=== PATIENT | male | born 1950 | race Caucasian/White ===

== ENCOUNTER 2016-10-21 01:28 | Day surgery (SDC) | payer MEDICARE, OTHER ==
[2016-10-21] VITALS (10 sets, daily range): BP systolic 101–140; BP diastolic 49–89; PULSE 86–111; RESP 16–18; O2SAT 91–99
[~2016-10-21] VITALS: Ht 182.9 cm; Wt 96.0 kg
[~2016-10-21 01:28] MED LIST: ACET1TAB12 PO; AMMO385C5 TP; ASCO-294 PO; ASPI-973 PO; BISA10SU61 RC; CALC667T5 PO; CARV25TA2 PO; CETI5TAB28 PO; CHOL100043 PO; CYAN10008 PO; DOCU250C2 PO; FLUT9.9S NS; HYDR-3605 PO; INSU100I; LACT10SO27 PO; MAGN400T39 PO; METH5TAB3 PO; NORT50CA PO; OMEP20TA86 PO; POLY17PO2 PO; PRAV40TA PO; PRAZ2CAP2 PO; SENN-133 PO; SEVE800T7 PO; SODI15OR8 PO; TEST200V20 IM; TRAZ-118 PO; VANC1VIA13 IV; VARD20TA30 PO; WHEA98PO PO; ZOLP10TA5 PO; ZYL100 PO; [UNRECOGNIZED DRUG - CODE] PO
[2016-10-21 08:58] LABS: BASOPHILS % (AUTO) 0.4 % (0-3); EOSINOPHILS % (AUTO) 5.9 % (0-5); MONOCYTES % (AUTO) 10.7 % (4-12); Mean Corpuscular Hemoglobin 30.1 pg (27.0-35.0); Mean Corpuscular Volume 91.3 fL (81-100); NEUTROPHILS % (AUTO) 63.9 % (40-74); Platelet Count 72 bil/L (150-400)
[2016-10-21 09:14] LABS: INR 1.04 ratio
[2016-10-21] MEDS ORDERED: 0.9% Sodium Chloride 500 ML ONE (10:28)
[2016-10-21] MEDS ORDERED: CeFAZolin 2 Gm/50 mL D5W Duplex Bag IV ONE (10:28)
[2016-10-21] MEDS ORDERED: Dextrose 5% 0.45% NaCl 1,000 ML IV ONE (10:37)
[2016-10-21] MEDS ORDERED: Heparin 5,000 Units/500 mL NS Premix IV ONE (12:29)
[2016-10-21] MEDS ORDERED: fentaNYL-PF 50 mCg/mL 2 mL Inj ONE (12:29)
[2016-10-21] MEDS ORDERED: Heparin 1,000 Unit/mL 10 mL Inj ONE (12:29)
[2016-10-21] MEDS ORDERED: Ondansetron 2 mg/mL 2 mL Inj ONE (13:58)
--- NOTE | 2016-10-21 16:16 | NUR ---
Patient discharged ambulatory with oil truck driver. Patient has eaten and drank apple juice. Patient received total of apple juice 240cc, some water and a sandwich.D5 1/2ns continued until patient ate.
--- NOTE | 2016-10-21 16:47 | DRSVH ---
PROCEDURE: ARTERIO VENOUS FISTULOGRAM (PNL) INDICATIONS: STENOSIS TECHNIQUE: 1. Conscious sedation for 30 minutes. 2. Antegrade access of the left upper extremity venous outflow. 3. Fistulogram performed in stations the level of the SVC. 4. Balloon angioplasty of 3 focal high-grade stenoses within the venous outflow. 5. Completion fistulogram. 6. Sheath removal hemostasis. The indications, alternatives, benefits, risks, and complications of the procedure were explained to the patient.. Informed written consent was obtained and placed in the chart. The patient was tereza t to the angiography suite, and conscious sedation was administered intravenously by assisted staff, while continuous cardiorespiratory monitoring was performed. Maximum sterile barrier technique was employed per standard protocol, including hand hygiene, cap, ma sk, sterile gown and gloves, and 2% chlorhexidine. One percent lidocaine was used to anesthetize the skin over the area of interest. Using Seldinger technique and a micropuncture kit, the venous outflow of a left upper extremity fistula was accessed in antegrade fashion. Fistulogram was performed throu gh the micropuncture sheath. An 035 wire was advanced with the tip in the brachiocephalic vein. The m icropuncture sheath was exchanged for a short 6 Beninese sheath. Balloon angioplasty was performed for a focal high-grade stenosis within the distal portion of the central cephalic stent with a 7 mm x 40 mm high-pressure balloon. Angioplasty was also performed with this balloon at a focal high-grade sten osis within the peripheral portion of the cephalic stent. Next, angioplasty was performed for a focal high-grade stenosis within the midportion of the venous outflow with the 7 mm x 40 mm high-pressure balloon. Next, all 3 lesions were angioplastied with an 8 mm x 40 mm high-pressure balloon. Completio n fistulogram was performed. The balloon was removed, the sheath was removed, and hemostasis was achi eved. FLUOROSCOPY TIME: 3.6 minutes. COMPARISON: [facility], , ARTERIO VENOUS FISTULOGRAM (PNL), 04/08/2016, 12:07. FINDINGS: Initial fistulogram demonstrates a focal high-grade stenosis at the central portion of the cephalic stent, a focal high-grade stenosis within the peripheral portion of the cephalic stent, and a moderate to high-grade stenosis within the midportion of the venous outflow. The arteriovenous dino stomosis is widely patent. Completion fistulogram after balloon angioplasty demonstrates resolution o f the 3 focal stenoses. IMPRESSION: 1. Status post balloon angioplasty of a focal high-grade stenosis within the central portion of the c ephalic stent, a focal high-grade stenosis within the peripheral portion of the cephalic stent, and a moderate to high-grade stenosis within the midportion of the venous outflow. No residual stenosis re herber. Dictated by: Sabine Joshua M.D. on 10/21/2016 at 16:45 Approved by: Sabine Joshua M.D. on 10/21/2016 at 16:45
== END 2016-10-21 23:59 | disposition home or self-care (01) ==
LOC: SOUO 01:28
PROVIDERS: ATTEND Radiology Vascular & Interventional Radiology
DX: T82.858A Stenosis of other vascular prosthetic devices, implants and grafts, initial encounter (principal); Y83.2 Surgical operation with anastomosis, bypass or graft as the cause of abnormal reaction of the patient, or of later complication, without mention of misadventure at the time of the procedure; I12.0 Hypertensive chronic kidney disease with stage 5 chronic kidney disease or end stage renal disease; N18.6 End stage renal disease; Z99.2 Dependence on renal dialysis; Z87.891 Personal history of nicotine dependence; I25.10 Atherosclerotic heart disease of native coronary artery without angina pectoris; T82.856A Stenosis of peripheral vascular stent, initial encounter; Y84.8 Other medical procedures as the cause of abnormal reaction of the patient, or of later complication, without mention of misadventure at the time of the procedure
CPT/HCPCS: 36902; 80048; 85025; 85610; 99152; 99153; C1725; C1769; C1894; J1644; J2250; J2405; J3010; J7040; Q9967

== ENCOUNTER 2017-01-25 01:50 | Day surgery (SDC) | payer MEDICARE, OTHER ==
[2017-01-25] VITALS (9 sets, daily range): BP systolic 129–143; BP diastolic 48–82; PULSE 90–110; RESP 16–24; O2SAT 94–96
[~2017-01-25] VITALS: Ht 185.4 cm; Wt 95.0 kg
[~2017-01-25 01:50] MED LIST changes: -VANC1VIA13 IV; -[UNRECOGNIZED DRUG - CODE] PO
[2017-01-25 07:47] LABS: BASOPHILS % (AUTO) 0.3 % (0-3); EOSINOPHILS % (AUTO) 3.8 % (0-5); Mean Corpuscular Hemoglobin 30.8 pg (27.0-35.0); Mean Corpuscular Volume 94.6 fL (81-100); NEUTROPHILS % (AUTO) 66.2 % (40-74); Platelet Count 67 bil/L (150-400)
[2017-01-25] MEDS ORDERED: ZYL100 PO (07:55)
[2017-01-25] MEDS ORDERED: CARV25TA2 PO (07:55)
[2017-01-25 08:07] LABS: INR 1.16 ratio
[2017-01-25] MEDS ORDERED: Heparin 1,000 Unit/mL 10 mL Inj ONE (08:11)
[2017-01-25] MEDS ORDERED: Heparin 5,000 Units/500 mL NS Premix IV ONE (08:11)
[2017-01-25] MEDS ORDERED: Ondansetron 2 mg/mL 2 mL Inj ONE (08:39)
[2017-01-25] MEDS ORDERED: fentaNYL-PF 50 mCg/mL 2 mL Inj ONE (08:55)
--- NOTE | 2017-01-25 10:52 | DRSVH ---
PROCEDURE: 1. Limited ultrasound of the left upper extremity arteriovenous fistula. 2. Angioplasty of the venous limb at the level of the distal humerus. 3. Angioplasty of the venous limb at the level of the proximal humerus. 4. Angioplasty of the central aspect of the cephalic vein stent. 5. Conscious sedation x57 minutes. INDICATIONS: Malfunctioning arteriovenous fistula. COMPARISON: None. TECHNIQUE: Informed, written consent from the patient was obtained prior to the procedure. Patient wa s brought to the angiography suite, and conscious sedation was administered intravenously by senior living staff, while continuous cardiorespiratory monitoring was performed. Maximal sterile barrier t echnique, hand hygiene, skin preparation, and sterile ultrasound technique (if ultrasound was utilize d) was followed. A mask, sterile gown, sterile gloves, a large sterile sheet, hand hygiene, and 2% ch lorhexidine or iodine was utilized for skin antisepsis. The left upper extremity was prepped and drap ed sterilely, and the skin and subcutaneous tissues overlying the peripheral aspect of the venous emanuel e were infused with lidocaine. Limited ultrasound of the venous limb was performed. The peripheral as pect of the venous line was accessed antegrade with a micropuncture set. Contrast was injected for ar teriovenous fistulogram. Intravenous heparin was administered. A 6 [place] sheath was advanced. An 8mm diameter high pressure angioplasty balloon was expanded within the central cephalic vein stent, the venous limb at the level of the proximal humerus, in the venous limb at the level of the distal humer us, followed by repeat arteriovenous fistulogram. Sheath was removed and the venotomy was closed with pursestring closure technique. FLUOROSCOPY TIME: 4 minutes FINDINGS: Recurrent high-grade stenoses within the venous limb at the level of the distal humerus, p roximal humerus, and within the central aspect of the cephalic vein stent are present, resolved follo wing 8 mm high-pressure angioplasty. IMPRESSION: 1. Multifocal recurrent high-grade stenoses within the venous limb, resolved following 8 mm high-pres sure angioplasty. Dictated by: Juarez Purvis M.D. on 01/25/2017 at 10:47 Approved by: Juarez Purvis M.D. on 01/25/2017 at 10:50
--- NOTE | 2017-01-25 12:50 | NUR ---
Discharge Pt discharged to home with , VSS and WNL on RA throughout recovery, purse string removed from fistula site, no signs of bleeding post removal. Pt stated verbal understanding of discharge instructions regarding signs of worsening condition, follow up appointments and use of home medications. Pt left with personal belongings, discharge paperwork, IV dc'd intact at approximately 1155
== END 2017-01-25 23:59 | disposition home or self-care (01) ==
LOC: SOUO 01:50
PROVIDERS: ATTEND Radiology Diagnostic Radiology
DX: T82.858A Stenosis of other vascular prosthetic devices, implants and grafts, initial encounter (principal); T82.856A Stenosis of peripheral vascular stent, initial encounter; Y84.8 Other medical procedures as the cause of abnormal reaction of the patient, or of later complication, without mention of misadventure at the time of the procedure; Y83.2 Surgical operation with anastomosis, bypass or graft as the cause of abnormal reaction of the patient, or of later complication, without mention of misadventure at the time of the procedure; E11.22 Type 2 diabetes mellitus with diabetic chronic kidney disease; E11.21 Type 2 diabetes mellitus with diabetic nephropathy; D63.1 Anemia in chronic kidney disease; N18.6 End stage renal disease; Z99.2 Dependence on renal dialysis; Z79.4 Long term (current) use of insulin
CPT/HCPCS: 36415; 36902; 80048; 85025; 85610; 99152; 99153; C1725; C1769; J1644; J2250; J2405; J3010; Q9967

== ENCOUNTER 2017-03-31 14:07 | Emergency (ER) | payer MEDICARE, OTHER ==
[~2017-03-31] VITALS: Ht 185.4 cm; Wt 97.7 kg
[~2017-03-31 14:07] MED LIST changes: -LACT10SO27 PO; -POLY17PO2 PO
[2017-03-31 14:11] VITALS: BP 135/55; PULSE 78; RESP 18; O2SAT 98
--- NOTE | 2017-03-31 14:34 | ED.REPORT ---
HPI-Extremity Problem Upper Date of Service Mar 31, 2017 ED Provider: History of Present Illness: 66yo male with long hx. of DM and ESRD, he is on dialysis and reports several months of sores on dorsal L index, middle, and ring fingers that wound care clinic advised having evaluated per his report. The fingers are sore. He reports he has an appt. with Dr. Duane Salcedo on 04/05/17. Nursing Notes Stated Complaint: LEFT HAND PAIN Chief Complaint: Extremity Trauma Nursing Notes Reviewed: Yes Allergies: Coded Allergies: quetiapine (Verified Allergy, Intermediate, 07/21/16) "i almost black out" lisinopril (Verified Allergy, Unknown, 07/21/16) "i almost black out" Scheduled Allopurinol (Allopurinol) 100 Mg Tablet 100 MG PO DAILY Aspirin (Aspirin) 81 Mg Tablet 162 MG PO DAILY Bisacodyl (Dulcolax Rectal) 10 Mg Supp.rect 10 MG RC DAILY Calcium Acetate (Calcium Acetate) 667 Mg Tablet 3 TABLET PO DAILY Carvedilol (Carvedilol) 25 Mg Tablet 37.5 MG PO BID Cetirizine (Cetirizine) 5 Mg Tablet 5 MG PO HS Cholecalciferol (Vitamin D3) (Vitamin D) 1,000 Unit Tablet 1,000 UNIT PO BID Cyanocobalamin (Vitamin B-12) (Vitamin B-12) 1,000 Mcg Tablet 1,000 MCG PO DAILY Docusate Sodium (Docusate Sodium) 250 Mg Capsule 250 MG PO DAILY Insulin Aspart (NovoLOG U-100 Pen) 100 Unit/Ml Insuln.pen 0-10 ACHS Methadone (Methadone) 5 Mg Tablet 5 MG PO BID Nortriptyline (Nortriptyline) 50 Mg Capsule 200 MG PO HS Omeprazole (Omeprazole) 20 Mg Tablet.dr 20 MG PO BID Pravastatin (Pravastatin) 40 Mg Tablet 40 MG PO HS Prazosin (Prazosin) 2 Mg Capsule 2 MG PO HS Sevelamer Carbonate (Renvela) 800 Mg Tablet 3,200 TABLET PO TIDWM Trazodone (Trazodone) 100 Mg Tablet 100 MG PO HS Scheduled PRN Acetaminophen/Codeine 300-30mg (Tylenol/Codeine #3) 1 Each Tablet 1 TABLET PO q4hr PRN PRN Pain HydrOXYzine HCl (HydrOXYzine HCl) 10 Mg Tablet 10 MG PO TID PRN PRN For Itching Zolpidem (Zolpidem) 10 Mg Tablet 10 MG PO HS PRN PRN For Insomnia oxyCODONE (oxyCODONE) 5 Mg Tablet 5 MG PO Q4H PRN PRN For Pain Miscellaneous Medications Ammonium Lactate (Ammonium Lactate) 140 Gm Cream..g. TP Ascorbate Calcium (Vitamin C) 500 Mg Tablet 500 MG PO Fluticasone Propionate (Flonase Allergy Relief) 50 Mcg/Actuation [place].susp 9.9 ML NS Magnesium Oxide (Magnesium) 400 Mg Tablet 400 MG PO Sennosides (Senna) 8.6 Mg Tablet 8.6 MG PO Sodium Polystyrene Sulfonate (Sodium Polystyrene Sulfonate) 15 Gm/60 Ml Oral.susp 15 GM PO Testosterone Cypionate (Testosterone Cypionate) 200 Mg/1 Ml Vial 200 MG IM Vardenafil (Levitra) 20 Mg Tablet 10 MG PO Wheat Dextrin (Benefiber) 1 Each Powd.pack 1 EACH PO General Time Seen by MD: 14:34 Chief Complaint Finger injury left 2, Finger injury left 3, Finger injury left 4 dry gangrene L index finger Hx Obtained From: Patient Arrived By: Walk-in Onset Occurred: More than a week ago... (3 months) Symptom Duration: Waxes and wanes Location: : Finger left 2: Finger left 3: Finger left 4 Severity: Current: Moderate Severity: Maximum: Severe Pertinent Negative: Pt denies other symptoms Past Medical History Past Medical History - End stage renal disease on chronic hemodialysis. - NSTEMI - congestive heart failure, acute, systolic dysfunction. 35-40% EF - valvular heart disease - aortic valve calcifications - Hx of acute hypoxic respiratory failure due to acute pulmonary edema requiring high-flow oxygen - diabetic neuropathy - gout - obstructive sleep apnea Reports: Coronary artery disease, Diabetes mellitus, Hyperlipidemia, Hypertension, Stroke Reports: Atrial fibrillation Past Surgical History 3-way cardiac bypass December 2014 Reports: CABG Reports: Carpal tunnel Family History Reports: Diabetes mellitus Smoking History Former Smoker Social History Other Social History: Good social support, Ambulatory Status Wheelchair Review of Systems Constitutional: Denies: Chills, Fever Musculoskeletal: Reports: Back pain, Extremity pain, Joint pain, Denies: Extremity swelling Cardiovascular: Denies: Chest pain GI: Denies: Abdominal pain Physical Exam Initial Vital Signs Vital Signs (First) Date Time Temp Pulse Resp B/P Pulse Ox O2 Delivery O2 Flow Rate FiO2 03/31/17 14:11 36.8 78 18 135/55 98 Room Air Initial VS: Vital signs normal General/Constitutional: Awake, Alert, No acute distress, Not toxic appearing Respiratory / Chest: Breath sounds NL, Breath sounds = bilat, No respiratory distress Cardiovascular: Heart rate NL, Regular rhythm, Heart sounds NL Finger Exam : Finger Exam: Positive: Finger name... (L index), ROM reduced, Tenderness present... (Moderate) dry gangrene at distal phalanx. Dorsal PIP ulcer/escar at 3rd digit. Re-Eval/Medical Decision Med Decision/Clinical Course Pt. reviewed with Dr. Mclean who advised pain relief and follow up with Dr. Salcedo as scheduled. Discussed s/s for which to return to ED. Pt. acknowledged understanding of treatment plan. Counseled Regarding: Diagnosis, Need for follow-up, When/why to return to ED Discharge & Departure Impression: Primary Impression: Dry gangrene Additional Impression: Ischemic finger ulcer Non-pressure ulcer stage: unspecified non-pressure ulcer stage Qualified Code : L98.499 - Non-pressure chronic ulcer of skin of other sites with unspecified severity Disposition: Home Patient Instructions: Gangrene (DC) Additional Instructions: Take pain meds as needed for finger pain. Use soap and water to wounds daily. Follow up with Dr. Salcedo as scheduled on 04/05. Return to Er if anything worsens. Referrals: Nathanael Salcedo MD 5 to 6 Days as scheduled 04/05 EDSupervising Provider for APC: Deny Mclean MD Attending Statement I saw and evaluated this patient with Mr. Matt PA-C. I am in agreement with his assessment of dried gangrene in the left fingertips. The patient has follow -up already arranged with Dr. Salcedo from surgery in 48 hours. The visit today is primarily a pain management issue and Mr. Gutierrez will arrange for more effective pain management. Catrachito Talamantes MD Mar 31, 2017 14:34 Andrew Gutierrez Mar 31, 2017 14:38 Deny Mclean MD Mar 31, 2017 16:49
--- NOTE | 2017-03-31 15:10 | DRSVH ---
PROCEDURE: X-RAY LEFT HAND, MINIMUM THREE VIEWS ([id number]) INDICATIONS: RULE OUT osteo TECHNIQUE: 3 views of the hand(s) acquired. COMPARISON: None. FINDINGS: Bones: No fractures or dislocations. Carpal bones are normally aligned. No suspicious bony lesions . Osteopenia. Mild degenerative changes in multiple interphalangeal joints. Soft tissues: No suspicious soft tissue calcifications. Extensive vascular calcifications. IMPRESSION: 1. No acute fractures. 2. Extensive vascular calcifications. Correlate for history of diabetes. Dictated by: Curt Gilman M.D. on 03/31/2017 at 15:07 Approved by: Curt Gilman M.D. on 03/31/2017 at 15:08
[2017-03-31] MEDS ORDERED: OXYC5TAB72 PO (16:44)
[2017-03-31 16:50] VITALS: BP 136/54; PULSE 69; RESP 16; O2SAT 98
== END 2017-03-31 16:51 | disposition home or self-care (01) ==
LOC: SED 14:07
DX: I96 Gangrene, not elsewhere classified (principal); L98.499 Non-pressure chronic ulcer of skin of other sites with unspecified severity; E11.22 Type 2 diabetes mellitus with diabetic chronic kidney disease; N18.6 End stage renal disease; I50.9 Heart failure, unspecified; E11.21 Type 2 diabetes mellitus with diabetic nephropathy; I25.10 Atherosclerotic heart disease of native coronary artery without angina pectoris; E78.5 Hyperlipidemia, unspecified; I12.0 Hypertensive chronic kidney disease with stage 5 chronic kidney disease or end stage renal disease; Z99.2 Dependence on renal dialysis; Z87.891 Personal history of nicotine dependence; Z95.1 Presence of aortocoronary bypass graft; Z86.73 Personal history of transient ischemic attack (TIA), and cerebral infarction without residual deficits; Z88.8 Allergy status to other drugs, medicaments and biological substances; Z79.82 Long term (current) use of aspirin; Z79.4 Long term (current) use of insulin

== ENCOUNTER 2017-04-13 19:46 | Emergency (ER) | payer MEDICARE, OTHER ==
[~2017-04-13] VITALS: Ht 185.4 cm; Wt 100.0 kg
[~2017-04-13 19:46] MED LIST changes: +OXYC5TAB72 PO
[2017-04-13 20:15] VITALS: BP 149/60; PULSE 88; RESP 18; O2SAT 97
--- NOTE | 2017-04-13 20:33 | ED.REPORT ---
HPI-General Illness Date of Service Apr 13, 2017 ED Provider: Marshall Jc MD Pt is a 66 y/o male w/ a hx of ESRD on HD, CHF, CAD, HTN, CVA, DM, HLD, a-fib, presenting to the ED due to marital difficulties. The patient has been to his for 46 years and apparently wanted to get away from his because they have been having heated arguments so he decided to come to the ED. The patient called his emergency room specialist Dr. Nixon who recommended he come to the ED today. He has also been experiencing vague transient confusion which has been occurring for many years such as not being able to fix a TV remote control. There are no acute medical complaints. In further conversations with the patient it sounds like his primary frustration today was getting his multiple remote controls confused at which point he became quite agitated and had an argument with his . Nursing Notes Stated Complaint: GENERAL Chief Complaint: General Complaint Nursing Notes Reviewed: Yes Allergies: Coded Allergies: quetiapine (Verified Allergy, Intermediate, 07/21/16) "i almost black out" lisinopril (Verified Allergy, Unknown, 07/21/16) "i almost black out" Scheduled Allopurinol (Allopurinol) 100 Mg Tablet 100 MG PO DAILY Aspirin (Aspirin) 81 Mg Tablet 162 MG PO DAILY Bisacodyl (Dulcolax Rectal) 10 Mg Supp.rect 10 MG RC DAILY Calcium Acetate (Calcium Acetate) 667 Mg Tablet 3 TABLET PO DAILY Carvedilol (Carvedilol) 25 Mg Tablet 37.5 MG PO BID Cetirizine (Cetirizine) 5 Mg Tablet 5 MG PO HS Cholecalciferol (Vitamin D3) (Vitamin D) 1,000 Unit Tablet 1,000 UNIT PO BID Cyanocobalamin (Vitamin B-12) (Vitamin B-12) 1,000 Mcg Tablet 1,000 MCG PO DAILY Docusate Sodium (Docusate Sodium) 250 Mg Capsule 250 MG PO DAILY Insulin Aspart (NovoLOG U-100 Pen) 100 Unit/Ml Insuln.pen 0-10 ACHS Methadone (Methadone) 5 Mg Tablet 5 MG PO BID Nortriptyline (Nortriptyline) 50 Mg Capsule 200 MG PO HS Omeprazole (Omeprazole) 20 Mg Tablet.dr 20 MG PO BID Pravastatin (Pravastatin) 40 Mg Tablet 40 MG PO HS Prazosin (Prazosin) 2 Mg Capsule 2 MG PO HS Sevelamer Carbonate (Renvela) 800 Mg Tablet 3,200 TABLET PO TIDWM Trazodone (Trazodone) 100 Mg Tablet 100 MG PO HS Scheduled PRN Acetaminophen/Codeine 300-30mg (Tylenol/Codeine #3) 1 Each Tablet 1 TABLET PO q4hr PRN PRN Pain HydrOXYzine HCl (HydrOXYzine HCl) 10 Mg Tablet 10 MG PO TID PRN PRN For Itching Zolpidem (Zolpidem) 10 Mg Tablet 10 MG PO HS PRN PRN For Insomnia oxyCODONE (oxyCODONE) 5 Mg Tablet 5 MG PO Q4H PRN PRN For Pain Miscellaneous Medications Ammonium Lactate (Ammonium Lactate) 140 Gm Cream..g. TP Ascorbate Calcium (Vitamin C) 500 Mg Tablet 500 MG PO Fluticasone Propionate (Flonase Allergy Relief) 50 Mcg/Actuation [place].susp 9.9 ML NS Magnesium Oxide (Magnesium) 400 Mg Tablet 400 MG PO Sennosides (Senna) 8.6 Mg Tablet 8.6 MG PO Sodium Polystyrene Sulfonate (Sodium Polystyrene Sulfonate) 15 Gm/60 Ml Oral.susp 15 GM PO Testosterone Cypionate (Testosterone Cypionate) 200 Mg/1 Ml Vial 200 MG IM Vardenafil (Levitra) 20 Mg Tablet 10 MG PO Wheat Dextrin (Benefiber) 1 Each Powd.pack 1 EACH PO General Time Seen by MD: 20:23 Chief Complaint Multip medical complaints Hx Obtained From: Patient Arrived By: Walk-in Sudden in Onset?: No Onset Occurred: More than a week ago... (>6 months) Symptom Duration: Since onset Severity: Current: No pain currently Severity: Maximum: No pain Past Medical History Past Medical History - End stage renal disease on chronic hemodialysis 3x per week. - NSTEMI - congestive heart failure, systolic dysfunction. 35-40% EF - valvular heart disease - aortic valve calcifications - Hx of acute hypoxic respiratory failure due to acute pulmonary edema requiring high-flow oxygen - diabetic neuropathy - gout - obstructive sleep apnea Reports: Coronary artery disease, Diabetes mellitus, Hyperlipidemia, Hypertension, Stroke Reports: Atrial fibrillation Past Surgical History 3-way cardiac bypass December 2014 Reports: CABG Reports: Carpal tunnel Family History Reports: Diabetes mellitus Smoking History Former Smoker Social History Other Social History: Good social support, Ambulatory Status Wheelchair Review of Systems Full Review of Systems Constitutional: Denies: Chills, Fatigue, Fever, Lethargy, Malaise, Recent wt loss, Weakness - generalized Respiratory: Denies: Dyspnea on exertion, Hemoptysis, Non-productive cough, Parox nocturnal dyspnea, Pleuritic pain, Prod cough, bloody, Prod cough, brown, Prod cough, clear, Prod cough, green, Prod cough, white, Prod cough, yellow, Shortness of breath, Wheezing Cardiovascular: Denies: Chest pain, Dyspnea on exertion, Edema, Orthopnea, Palpitations, Parox nocturnal dyspnea, Syncope Neurologic: Reports: Confusion, Denies: Abnormal movement, Bladder dysfunction, Bowel dysfunction, Change LOC , Dizziness, Focal weakness, Headache, Lightheaded, Numbness, Problem walking, Seizure, Shaking, Slurred speech, Spinning sensation, Syncope, Unable to speak, Vision change, Weakness Complete sys rev & neg: except as marked. Physical Exam Vital Signs Vital Signs Date Time Temp Pulse Resp B/P Pulse Ox O2 Delivery O2 Flow Rate FiO2 04/13/17 21:21 36.4 93 20 144/44 95 04/13/17 20:15 36.6 88 18 149/60 97 Room Air Initial VS: Reviewed, Vital signs normal Head / Eyes: Atraumatic, Normocephalic, PERRL ENT: Mucous membranes moist, Conjunctiva normal, No scleral icterus Neck: Supple, Full range of motion Respiratory: Breath sounds normal, Clear to auscultation, No respiratory distress Cardiovascular: Regular rate & rhythm, Heart sounds normal, Intact distal pulses Extremities: Vascular intact, Neuro intact, No swelling Skin: Warm, Dry, No cyanosis Neurologic: Alert, Oriented, Nonfocal Psychiatric: Mood/affect normal, Behavior normal, Normal thought content General/Constitutional: Awake, Alert, No acute distress, Well appearing, Cooperative, Not toxic appearing Upper Extremities Upper Extremity / MS: No deformity Ischemia of left distal fingertips which is not new Dialysis fistula present in LUE Re-Eval/Medical Decision Med Decision/Clinical Course Pt is a 66 y/o male w/ a hx of ESRD on HD, CHF, CAD, HTN, CVA, DM, HLD, a-fib, presenting to the ED due to marital difficulties. The patient has been to his for 46 years and apparently wanted to get away from his because they have been having heated arguments so he decided to come to the ED. The patient called his emergency room specialist Dr. Nixon who recommended he come to the ED today. He has also been experiencing vague transient confusion which has been occurring for many years such as not being able to fix a TV remote control. There are no acute medical complaints. In further conversations with the patient it sounds like his primary frustration today was getting his multiple remote controls confused at which point he became quite agitated and had an argument with his . Here in the emergency department the patient is afebrile, hemodynamically stable and in no apparent distress. He has a intact dialysis fistula in his left arm. Of note he has some ischemia of his left hand fingertips which he states his physicians are aware of and he is currently being treated for this. This is not an acute issue. He has no chest pain, shortness of breath, fevers, chills, focal weakness or other acute medical concerns. He states that he just wanted to get out of his house and talk to somebody. I spent some time speaking with the patient and he seems linear/ organized in no apparent distress. I do not see that he presents any immediate risk of harm to himself or others from a psychiatric perspective. He is feeling better and I feel that he is appropriate to be discharged back home. Prior to discharge follow-up and return precautions were reviewed in detail with the patient who verbalized understanding and agreement with the plan. The patient was discharged in stable condition. Time of Eval: 20:53 Re-Evaluation/Progress Note: F/U instructions and RTER warnings given. All questions addressed. Counseled Regarding: Diagnosis, Need for follow-up, When/why to return to ED Discharge & Departure Primary Impression: Marital stress Additional Impressions: Acute situational disturbance Ischemic necrosis of finger Dialysis patient Disposition: Home Discharge Condition All VS Reviewed: Yes Condition: Stable Additional Instructions: Thank you for seeking care at the emergency room. Our primary goal today in the ED was to evaluate you for any life-threatening conditions. Your evaluation was reassuring. You should follow-up with doctor Nixon. You should return to the ED immediately if you develop fevers, vomiting, cough, shortness of breath, chest pain, lightheadedness, weakness or any other concerning signs or symptoms. Thank you for letting us partake in your care today. Referrals: Nathanael Salcedo MD (PCP) Tristan Nixon DO Scribe Attestation Portions of this note were transcribed by Angel Alejo. I, Dr. Jc, personally performed the history, physical exam and medical decision-making; I reviewed and confirmed the accuracy of the information in the transcribed note. Signed by Taylor Lima, 04/13/17 - 2099 copies to: Tristan Nixon DO; Nathanael Salcedo MD, Beck O MD Apr 13, 2017 20:33 ANGEL ALEJO Apr 13, 2017 20:45
[2017-04-13 21:21] VITALS: BP 144/44; PULSE 93; RESP 20; O2SAT 95
[2017-04-21] MEDS ORDERED: VANC1VIA13 IV (16:49)
[2017-04-21] MEDS ORDERED: LACT10SO PO (16:49)
[2017-04-21] MEDS ORDERED: POLY17PO2 PO (16:49)
[2017-04-21] MEDS ORDERED: OXYC1TAB24 PO (16:49)
[2017-04-21] MEDS ORDERED: PSYL660P17 PO (16:49)
== END 2017-04-13 21:21 | disposition home or self-care (01) ==
LOC: SED 19:46
DX: F43.0 Acute stress reaction (principal); M87.842 Other osteonecrosis, left hand; I12.0 Hypertensive chronic kidney disease with stage 5 chronic kidney disease or end stage renal disease; N18.6 End stage renal disease; I25.2 Old myocardial infarction; I50.9 Heart failure, unspecified; I25.10 Atherosclerotic heart disease of native coronary artery without angina pectoris; E11.9 Type 2 diabetes mellitus without complications; E78.5 Hyperlipidemia, unspecified; I48.91 Unspecified atrial fibrillation; Z95.1 Presence of aortocoronary bypass graft; Z87.891 Personal history of nicotine dependence; Z86.73 Personal history of transient ischemic attack (TIA), and cerebral infarction without residual deficits; Z63.0 Problems in relationship with spouse or partner; Z87.39 Personal history of other diseases of the musculoskeletal system and connective tissue; Z95.828 Presence of other vascular implants and grafts; Z79.4 Long term (current) use of insulin; Z79.82 Long term (current) use of aspirin; Z88.8 Allergy status to other drugs, medicaments and biological substances; Z99.2 Dependence on renal dialysis

== ENCOUNTER → 2017-04-24 | Day surgery (SDC) | payer MEDICARE, OTHER ==
[~2017-04-24] VITALS: Ht 185.4 cm; Wt 100.0 kg
[~2017-04-24] MED LIST changes: +CeFAZolin 2 Gm/50 mL D5W Duplex Bag IV ONE; +CeFAZolin Inj 2 GM in IV Premix 1 EACH IV ONE; +Heparin 1,000 Unit/mL 10 mL Inj ONE; +Heparin 10,000 Unit/1,000 mL NS Premix IV ONE; +LACT10SO PO; +OXYC1TAB24 PO; -OXYC5TAB72 PO; +POLY17PO2 PO; +PSYL660P17 PO; +VANC1VIA13 IV; +fentaNYL-PF 50 mCg/mL 2 mL Inj ONE; +oxyCODONE-Acetamin 5-325 mg Tablet PO ONE
[2017-04-24 10:10] VITALS: BP 115/51; PULSE 64; RESP 18; O2SAT 96
--- NOTE | 2017-04-24 13:12 | NUR ---
SUHA: Pt arrived to [facility] around 0945 for tunnel cath placement. 20g IV started in R hand, VSS. Pt had c/o 9/10 pain in L fingers, notified and po percocet given with good relief of pain from fingers. Taken to clinical laboratory technologist for procedure in bed per clinical laboratory technologist RNs at 1310. Addendum: 04/24/17 at 1503 by BRENDA JUÁREZ RN Discharge: Pt arrived back from clinical laboratory technologist at 1400 with R upper chest tunnel cath in place, dressing to tunnel cath C/D/I, no c/o pain at tunnel cath site. Pt tolerated po intake free of any c/o nausea. IV catheter d/c'd intact from R hand. Pt given d/c instructions and care notes of tunnel cath, stated understanding to all. Pt left unit at 1500 and assisted into personal vehicle, son to transport pt home.
--- NOTE | 2017-04-24 14:01 | DRSVH ---
PROCEDURE: CV TUNNEL CATH PLCMNT 1. Sonographic guidance for venous access. 2. Conscious sedation for 25 minutes. 3. Right internal jugular vein tunneled hemodialysis catheter placement. 4. Fluoroscopic guidance for catheter placement. INDICATIONS: ESRD TECHNIQUE: The indications, alternatives, benefits, risks, and complications of the procedure were e xplained to the patient and any family members present. Informed written consent was obtained and pl aced in the chart. The patient was brought to the angiography suite, and conscious sedation was admi nistered intravenously by nursing home staff, while continuous cardiorespiratory monitoring was pe rformed. Maximum sterile barrier technique was employed per standard protocol, including hand hygiene, cap, ma sk, sterile gown and gloves, and 2% chlorhexidine. Sterile ultrasound probe cover was also utilized. 1% lidocaine was used for local anaesthesia. Under sonographic guidance, the right internal jugular vein was accessed with a Micropuncture set. An 0.035J wire was advanced into the vena cava. Subcuta neous tunnel was created within the right anterior chest wall, through which a 14.5 Sinhala double lum en tunneled hemodialysis catheter was advanced. Following sequential venotomy tract dilation, the ca theter was advanced through the peel-away sheath and the tip was placed at the cavoatrial junction. Peel-away sheath was removed. Adequate flow was obtained through both lumens of the catheter. The v enotomy was closed with Vicryl, and the catheter was fastened to the skin with Ticron. Both lumens w ere flushed with heparinized saline. The patient tolerated the procedure without difficulty and was in stable condition at the conclusion of the procedure. COMPARISON: None. FINDINGS: The right internal jugular vein is patent by ultrasound. Fluoroscopic imaging demonstrates tip of th e catheter at the cavoatrial junction. IMPRESSION: Right internal jugular vein tunneled hemodialysis catheter placement using sonographic and fluoroscop ic guidance. Dictated by: Juarez Purvis M.D. on 04/24/2017 at 13:59 Approved by: Juarez Purvis M.D. on 04/24/2017 at 13:59
[2017-04-24 14:05] VITALS: BP 163/48; PULSE 69; RESP 18
[2017-04-24 14:30] VITALS: BP 173/63; PULSE 71; RESP 16
[2017-04-24 14:54] VITALS: BP 164/40; PULSE 68; RESP 16
== END | disposition home or self-care (01) ==
LOC: SOUO 01:07
PROVIDERS: ATTEND Radiology Diagnostic Radiology
DX: E11.22 Type 2 diabetes mellitus with diabetic chronic kidney disease (principal); E11.21 Type 2 diabetes mellitus with diabetic nephropathy; N18.6 End stage renal disease; T82.898A Other specified complication of vascular prosthetic devices, implants and grafts, initial encounter; Z99.2 Dependence on renal dialysis; Z79.4 Long term (current) use of insulin; Z87.891 Personal history of nicotine dependence; Z79.82 Long term (current) use of aspirin
CPT/HCPCS: 36558; 76937; 77001; 99152; C1750; C1769; J1644; J2250; J3010

== ENCOUNTER → 2017-04-25 | Day surgery (SDC) | payer MEDICARE, OTHER ==
--- NOTE | 2017-04-21 11:46 | PCM.ANEPRE ---
Anesthesia Pre-Op Review Reason for Review: chronic atrial flutter, sub optimal control. 35-40% ef Anesthesia Recommendations: Proceed with Procedure Additional Comments 66 YO male with cardiomyopathy, ESRD, [place] NOSTEMI in 2015, INOCENTE., NIDDM, This patient is on dialysis and suffers from Left hand Steal. The roof truss machine tender's note from December of 2016 does indeed say, " Heart rate appears to be suboptimally controlled in the office today " but goes on to say " ALTHOUGH his home records suggest better heart rate control. " It is not clear what the patient's office HR was. Check patient's HR upon day of surgery and assess the status of other comorbidities on DOS. Wilver Joseph MD Apr 21, 2017 11:45
[~2017-04-25] VITALS: Ht 185.4 cm; Wt 99.8 kg
[~2017-04-25] MED LIST changes: +0.9% Sodium Chloride 500 ML IV ONE; +Bupivacaine-MPF 0.5% 30 mL Inj INFILTRATE ONE; -CeFAZolin 2 Gm/50 mL D5W Duplex Bag IV ONE; +CeFAZolin 2 Gm/50 mL D5W IV Premix IV ONE; -CeFAZolin Inj 2 GM in IV Premix 1 EACH IV ONE; +Dexamethasone 4 mg/mL Inj IVPUSH PRN; +EPHEDrine Sulfate 50 mg/mL Inj IVPUSH PRN; +HYDROmorphone 1 mg/mL Inj IVPUSH PRN; +Heparin 1,000 Unit/mL 10 mL Inj IRRIGATION ONE; -Heparin 1,000 Unit/mL 10 mL Inj ONE; -Heparin 10,000 Unit/1,000 mL NS Premix IV ONE; +Ketamine 10 mg/mL 20 mL Inj ONE; +Lactated Ringer's 1,000 ML IV SCH; +Lactated Ringer's 500 ML IV PRN; +MetoCLOpramide 5 mg/mL 2 mL Inj IVPUSH PRN; +Ondansetron 2 mg/mL 2 mL Inj IVPUSH PRN; +Ondansetron 2 mg/mL 2 mL Inj ONE; +Phenylephrine 10,000 mCg/mL Inj IVPUSH PRN; +Propofol 10,000 mCg/mL 20 mL Inj ONE; +fentaNYL-PF 50 mCg/mL 2 mL Inj IVPUSH PRN; -fentaNYL-PF 50 mCg/mL 2 mL Inj ONE; -oxyCODONE-Acetamin 5-325 mg Tablet PO ONE; +oxyCODONE-Acetamin 5-325 mg Tablet PO PRN
--- NOTE | 2017-04-25 08:10 | PCM.HPANE ---
Patient Data Surgeon Admitting Provider: Attending Provider:Nathanael Salcedo MD Primary Care Physician:Angus Lemus MD Other Provider:[facility]oc,[facility] Anesthesia Reason for Visit Left Hand Steal Syndrome T82.898 Ht/WT & BMI Height (Feet): 6 Height (Inches): 1 Weight (Kilograms): 100.7 Body Mass Index 29.00 Allergies Coded Allergies: quetiapine (Verified Allergy, Intermediate, 04/21/17) "i almost black out" lisinopril (Verified Allergy, Unknown, 04/21/17) "i almost black out" Past Anesthesia History Anesthesia History: Positive for:: Anesthesia Reactions (dont use general. I come out fighting. ), Denies:: Abnormal Airway, Difficult Intubation Diabetes History Hx Diabetes?: Yes (DMII) MRSA MRSA: No Medications Blood Thinner: Aspirin Hypertension Medication: Yes Home Meds Incl Beta Cesia: Yes Reported Medications Psyllium Husk (Metamucil)3.4 Gram/5.4 Gram PowderUnknown Dose PO 04/21/17 Lactulose 10 Gm/15 Ml Hojfyfbd41 Gm PO DAILY 04/21/17 Vancomycin 1 Gm VialUnknown Dose IV BID 04/21/17 oxyCODONE-Acetaminophen 5-325 mg 1 Each Tablet1 Tab PO Q6H PRN For Pain Ref 0 04/21/17 Allopurinol 100 Mg Tslbax882 Mg PO BID Ref 0 01/25/17 Carvedilol 25 Mg Guoxau52.5 Mg PO BID Ref 0 01/25/17 Ascorbate Calcium (Vitamin C)500 Mg Mzbbfo080 Mg PO 10/20/16 Zolpidem 10 Mg Elxzeh68 Mg PO HS PRN For Insomnia Ref 0 10/20/16 Trazodone 100 Mg Yhptzq319 Mg PO HS Ref 0 10/20/16 Testosterone Cypionate 200 Mg/1 Ml Ubpi126 Mg IM 10/20/16 Sodium Polystyrene Sulfonate 15 Gm/60 Ml Oral.susp15 Gm PO 10/20/16 Sennosides (Senna)8.6 Mg Tablet8.6 Mg PO 10/20/16 Insulin Aspart (NovoLOG U-100 Pen)100 Unit/Ml Insuln.pen0-10 Achs 10/20/16 Magnesium Oxide (Magnesium)400 Mg Ypbuza444 Mg PO 10/20/16 Vardenafil (Levitra)20 Mg Dpukma32 Mg PO 10/20/16 HydrOXYzine HCl 10 Mg Hrtwvy34 Mg PO TID PRN For Itching Ref 0 10/20/16 Fluticasone Propionate (Flonase Allergy Relief)50 Mcg/Actuation [place].susp9.9 Ml NS 10/20/16 Cetirizine 5 Mg Tablet5 Mg PO HS Ref 0 10/20/16 Calcium Acetate 667 Mg Tablet3 Tablet PO DAILY 10/20/16 Bisacodyl (Dulcolax Rectal)10 Mg Supp.rect10 Mg RC DAILY 30 Days Ref 0 10/20/16 Wheat Dextrin (Benefiber)1 Each Powd.pack1 Each PO 10/20/16 Ammonium Lactate 140 Gm Cream..g. Tp 10/20/16 Cyanocobalamin (Vitamin B-12) (Vitamin B-12)1,000 Mcg Tablet1,000 Mcg PO DAILY 04/07/16 Sevelamer Carbonate (Renvela)800 Mg Tablet3,200 Tablet PO TIDWM 01/22/16 Omeprazole 20 Mg Tablet.dr20 Mg PO BID 06/19/15 Cholecalciferol (Vitamin D3) (Vitamin D)1,000 Unit Tablet1,000 Unit PO BID 06/19/15 Aspirin 81 Mg Ujrbpv336 Mg PO DAILY 06/19/15 Acetaminophen/Codeine 300-30mg (Tylenol/Codeine #3)1 Each Tablet1 Tablet PO q4hr PRN Pain 05/01/15 Prazosin 2 Mg Capsule2 Mg PO HS 01/10/15 Pravastatin 40 Mg Qgbfxp41 Mg PO HS 01/10/15 Nortriptyline 50 Mg Mumxtoe162 Mg PO HS 01/10/15 Methadone 5 Mg Tablet5 Mg PO BID 01/10/15 Docusate Sodium 250 Mg Hhlovmk715 Mg PO DAILY 01/10/15 Discontinued Reported Medications Polyethylene Glycol 3350 17 Gm Powd.pack17 Gm PO DAILY 04/21/17 Discontinued Scripts oxyCODONE 5 Mg Tablet5 Mg PO Q4H PRN For Pain #30 TABLET Ref 0 Prov:Andrew Gutierrez 03/31/17 History History of ENT Problems?: No HEENT History: Denies:: Cataracts Dysphagia Sinus Problem Denture Type: None Teeth Condition: Within Normal Limits Hx of Heart Problems?: Yes Cardiovascular History: Positive for:: Cardiac Surgery (cabg 2016) Hypertension Irregular Heartbeat (Afib/chronic atrial flutter) Denies:: Chest Pain Congestive Heart Failure Edema Heart Murmur Pacemaker Thrombophlebitis Other Cardiac History: left a/v fistula - steal syndrome current admission problem Hx of Respiratory Problem?: Yes Respiratory History: Positive for:: Pneumonia (along time ago) Denies:: Asthma COPD Chest Surgery Dyspnea Emphysema Hemoptysis Oxygen Administration Tuberculosis Use of C-PAP Machine Hx Neurologic Problems?: Yes Neurological History: Positive for:: CVA Headaches Denies:: Alzheimer's Disease Dementia Dizziness Parkinson's Disease Seizures Hx of GI Problems?: Yes Hx of Problems?: Yes Genitourinary History: Positive for:: HX of Hemodialysis ( th sat. will dialyze am of surgery) Denies:: Kidney Stones Urinary Tract Infection HX of Peritoneal Dialysis: No Male Hx: Denies:: Prostate Problems Scrotal Mass Testicular Surgery Skin History: Positive for:: Pressure Ulcers (wound center pt now- diabetic ulcers left foot, fingers) Denies:: History Skin Disorders? Hx Musculoskeletal Problems?: Yes Musculoskeletal History: Positive for:: Back Injury Denies:: Joint Replacement Musculoskeletal Trauma Hx of Psycho/Social Problems?: Yes Psycho Social History: Positive for:: Anxiety Hx Depression Denies:: Bipolar Disorder Suicide Attempt Hx Surgeries?: Yes (shoulder, heart, multiple fistula) Hx Any Other Health Problems?: Yes Other History: Positive for:: Hospitalization (Syncope) Denies:: Cancer Thyroid Disease History Blood Transfusions: Denies:: Blood Transfuse Reaction Blood Transfusions Hx Diabetes: Yes (DMII) Hx Alcohol Use: NoHx Substance Use: No Smoking Status: Former Smoker Have You Smoked inLast 12 mo: No Stop/Bang S-Snoring: Do You Snore Loudly: No T-Tired: feel tired, fatigued: Yes O-Obsered: Observed not breath: No P-Blood Pressure: treated: Yes B- Body Mass Index > 35 kg/m2: No A- Age over 50: Yes N- Neck Large Circumference: No G- Gender Male: Yes INOCENTE Total Score: 4 INOCENTE Risk Assessment: High Risk, =/>3 Yes INOCENTE Category 4 OutPt Procedure: Yes Risk Assessment Category Category 1A: Patient has history of documented sleep apnea, and HAS NOT received any narcotic, sedative or anesthesia administration during this stay. Category 1B: Patient has history of documented sleep apnea, and HAS received any narcotic , sedative or anesthesia administration during this stay Category 2: Patient has SUSPECTED Obstructive Sleep Apnea, and HAS received any narcotic , sedative or anesthesia administration during this stay. Category 3: Patient has SUSPECTED Obstructive Sleep Apnea and HAS NOT received narcotic, sedative or anesthesia administration during this stay. Category 4: Outpatient in Procedural Areas with known sleep apnea or who screen positive for High Risk via the STOP/BANG questionnaire. Exam Exam General Appearance: Alert, Oriented X3, Cooperative, No Acute Distress HEENT/AIRWAY: MP 2 Lungs: Clear to Auscultation, Normal Air Movement Heart: Exam Unremarkable, Regular Rate/Rhythm, No Murmurs/Rubs/Gallops Meds/Labs/Diagnostics Admission Meds Current Medications Sodium Chloride (Normal Saline) 500 ml @ ud STK-MED ONCE IV Last administered on 04/25/17t 05:37; Start 04/25/17 at 05:37; Stop 04/25/17 at 05:38; Status DC Plan Impression Patient chart reviewed, patient interviewed and anesthestic plan with risks, benefits, and alternatives discussed, and informed consent obtained. NPO per Anesth. Guidelines: Yes ASA Physical Status: ASA3 Severe Disease Anesthetic Plan: GA Bene/Risks/Altern/Consents: Yes HP Complete Prior to Induction: Yes Tyler Sellers MD Apr 25, 2017 08:10
[2017-04-25 10:54] VITALS: BP 182/132; PULSE 68; RESP 18; O2SAT 96
[2017-04-25 12:43] VITALS: BP 156/66; PULSE 65; RESP 14; O2SAT 94
[2017-04-25 13:27] VITALS: BP 148/70; PULSE 62; RESP 16; O2SAT 97
--- NOTE | 2017-04-25 13:58 | OP ---
[address] [address] OPERATIVE REPORT PATIENT: JASS CROWELL : 1950 MR#: [id number] ADMIT: 04/25/2017 JOB ID: [id number] DATE OF SURGERY: 04/25/2017 PREOPERATIVE DIAGNOSIS(ES): Left hand steal syndrome from the AV fistula. POSTOPERATIVE DIAGNOSIS(ES): Left hand steal syndrome from the AV fistula. PROCEDURE: Ligation of left brachiocephalic arteriovenous fistula. SURGEON: Nathanael Salcedo M.D. GLAZE HANDLER: Kristina Nguyen PA-C INDICATIONS: A 66-year-old man who has a left brachiocephalic fistula for dialysis and has developed ulceration of his left hand. He has had multiple recent revisions of his AV fistula by Interventional Radiology, and so after discussing options with the patient, it was elected to have him get a tunneled catheter for dialysis and then to proceed with ligation of this fistula as it has been recently failing and then ultimately to create a new AV fistula. FINDINGS: The fistula was successfully ligated and divided. He had multiple ulcerations of his left hand and digits. DESCRIPTION OF PROCEDURE: At the beginning and end of the operation, the SCOAP checklist was completed. He received deep sedation and local anesthesia with 1% lidocaine, 0.5% bupivacaine. Using Betadine he was prepped and draped in the usual fashion. A linear incision over the fistula was designed and then incised. The fistula was exposed and controlled proximally and distally with vessel loops. Proximally it was also clamped with a vascular clamp. I then placed a 3-0 Prolene suture in a horizontal mattress fashion in two layers across on the arterial side of the fistula. I then placed a simple 3-0 Prolene suture ligature on the venous side. The fistula was cut and completely divided and then I placed one more mattress suture of 3-0 Prolene on the arterial side. There was no bleeding from the arterial or venous end of the fistula and the radial artery Doppler signal was improved following ligation. Estimated blood loss was only 1 cc. There are no apparent complications. The wound was closed with subcutaneous and running subcuticular 4-0 Vicryl. Dermabond was applied over the incision. The final sponge, needle and instrument counts were announced as correct and he was returned to the recovery room in stable condition. Critical assistance was provided by Kristina Nguyen PA-C without whose assistance I could not have safely and successfully completed this operation.
--- NOTE | 2017-04-27 07:40 | PCM.ANEP1 ---
Post Anesthesia PACU Phase 1 Assessment Anesthetic Administered: GA Level of Alertness: Awake, talking RANKIN's with Equal Strength: Yes Pain: No Nausea or Vomiting: No CV Function & Hydration Stable: Yes Airway Device: natural Oxygen Delivery: Simple Mask Lungs: Clear to Auscultation, Normal Air Movement Dermatome Level: Full Sensation PACU Phase 2 Assessment Complications: No Follow up Care: No Patient Instructions Provided: N/A Tyler Sellers MD Apr 27, 2017 07:40
== END | disposition home or self-care (01) ==
LOC: SAS 10:19
PROVIDERS: ATTEND Surgery
DX: T82.898A Other specified complication of vascular prosthetic devices, implants and grafts, initial encounter (principal); N18.6 End stage renal disease; I12.0 Hypertensive chronic kidney disease with stage 5 chronic kidney disease or end stage renal disease; E11.22 Type 2 diabetes mellitus with diabetic chronic kidney disease; I25.10 Atherosclerotic heart disease of native coronary artery without angina pectoris; E78.5 Hyperlipidemia, unspecified; I25.2 Old myocardial infarction; G47.33 Obstructive sleep apnea (adult) (pediatric); I48.0 Paroxysmal atrial fibrillation; Z87.891 Personal history of nicotine dependence; Z99.2 Dependence on renal dialysis; Z79.4 Long term (current) use of insulin; Z79.82 Long term (current) use of aspirin
CPT/HCPCS: 37607; J0690; J1644; J2405; J7030

== ENCOUNTER 2017-05-24 11:34 | Day surgery (SDC) | payer MEDICARE, OTHER ==
[~2017-05-24] VITALS: Ht 185.4 cm; Wt 97.7 kg
[~2017-05-24 11:34] MED LIST changes: -0.9% Sodium Chloride 500 ML IV ONE; -ASPI-973 PO; -BISA10SU61 RC; -Bupivacaine-MPF 0.5% 30 mL Inj INFILTRATE ONE; +CALC0.257 PO; -CETI5TAB28 PO; -CeFAZolin 2 Gm/50 mL D5W IV Premix IV ONE; +Clindamycin Inj 900 MG in IV Premix 1 EACH IV ONE; +ERGO1POW10 MC; -FLUT9.9S NS; +FURO40TA4 PO; -Heparin 1,000 Unit/mL 10 mL Inj IRRIGATION ONE; -Ketamine 10 mg/mL 20 mL Inj ONE; +LANT500T PO; +LORA10CA9 PO; +Labetalol 5 mg/mL 20 mL Inj IV PRN; +MECL-114 PO; -Ondansetron 2 mg/mL 2 mL Inj ONE; -POLY17PO2 PO; -Propofol 10,000 mCg/mL 20 mL Inj ONE; -VANC1VIA13 IV; -VARD20TA30 PO; -WHEA98PO PO; -ZOLP10TA5 PO; +hydrALAZINE 20 mg/mL Inj IVPUSH PRN; -oxyCODONE-Acetamin 5-325 mg Tablet PO PRN
[2017-05-24] MEDS ORDERED: Ketamine 10 mg/mL 20 mL Inj ONE (11:35)
[2017-05-24] MEDS ORDERED: Propofol 10,000 mCg/mL 20 mL Inj ONE (11:35)
[2017-05-24] MEDS: 0.9% Sodium Chloride 500 ML IV SCH ×2 (11:49→13:36)
[2017-05-24] MEDS ORDERED: Clindamycin 900 mg/50 mL D5W Premix IV ONE (11:53)
[2017-05-24 12:23] VITALS: BP 157/73; PULSE 72; RESP 16; O2SAT 95
--- NOTE | 2017-05-24 13:35 | PCM.HPANE ---
Patient Data Date of Service: May 24, 2017 Surgeon Admitting Provider: Attending Provider:Fabián Asencio MD Primary Care Physician:Angus Lemus MD Other Provider:Jonathan Bullard Anesthesia Reason for Visit Left Index Finger Necrosis Ht/WT & BMI Height (Feet): 6 Height (Inches): 1.00 Weight (Kilograms): 97.700 Body Mass Index 28.00 Allergies Coded Allergies: quetiapine (Verified Allergy, Intermediate, 05/18/17) "i almost black out" lisinopril (Verified Allergy, Unknown, 05/18/17) "i almost black out" Past Anesthesia History Anesthesia History: Positive for:: Anesthesia Reactions (don't use "general, I come out swinging"), Denies:: Abnormal Airway, Difficult Intubation, Fam Anesthesia Reaction, Fam Malignant Hypertherm, Malignant Hyperthermia Diabetes History Hx Diabetes?: Yes Glycemic Control: Insulin Dependent Current Bedside Blood Glucose: 114 MRSA MRSA: No Medications Blood Thinner: Aspirin Last Dose Blood Thinner: May 19, 2017 Hypertension Medication: Yes (darvedilol) Home Meds Incl Beta Cesia: Yes Date Beta Cesia Taken: May 24, 2017 Time Beta Cesia Taken: 0600 Reported Medications Ergocalciferol (Vitamin D2) (Ergocalciferol)1 Gm Powder1 Gm MC 05/18/17 Meclizine (Bonine)25 Mg Tab.chew25 Mg PO 05/18/17 Loratadine 10 Mg Fzwmuyn27 Mg PO DAILY 05/18/17 Lanthanum Carb Chew (Fosrenol Chew)500 Mg Olqj231 Mg PO TID 05/18/17 Calcitriol (Rocaltrol)0.25 Mcg Capsule0.25 Mcg PO 05/18/17 Psyllium Husk (Metamucil)3.4 Gram/5.4 Gram PowderUnknown Dose PO 04/21/17 Lactulose 10 Gm/15 Ml Visbzyok97 Gm PO DAILY 04/21/17 Allopurinol 100 Mg Qipsni363 Mg PO BID Ref 0 01/25/17 Carvedilol 25 Mg Bngkbm32.5 Mg PO BID Ref 0 01/25/17 Ascorbate Calcium (Vitamin C)500 Mg Rupeaf783 Mg PO 10/20/16 Trazodone 100 Mg Jckngx740 Mg PO HS Ref 0 10/20/16 Testosterone Cypionate 200 Mg/1 Ml Bzaz608 Mg IM 10/20/16 Sodium Polystyrene Sulfonate 15 Gm/60 Ml Oral.susp15 Gm PO 10/20/16 Sennosides (Senna)8.6 Mg Tablet8.6 Mg PO 10/20/16 Insulin Aspart (NovoLOG U-100 Pen)100 Unit/Ml Insuln.pen0-10 Achs 10/20/16 Magnesium Oxide (Magnesium)400 Mg Bdgvyy611 Mg PO 10/20/16 Calcium Acetate 667 Mg Tablet3 Tablet PO DAILY 10/20/16 Ammonium Lactate 140 Gm Cream..g. Tp 10/20/16 Cyanocobalamin (Vitamin B-12) (Vitamin B-12)1,000 Mcg Tablet1,000 Mcg PO DAILY 04/07/16 Sevelamer Carbonate (Renvela)800 Mg Tablet3,200 Tablet PO TIDWM 01/22/16 Cholecalciferol (Vitamin D3) (Vitamin D)1,000 Unit Tablet1,000 Unit PO BID 06/19/15 Acetaminophen/Codeine 300-30mg (Tylenol/Codeine #3)1 Each Tablet1 Tablet PO q4hr PRN Pain 05/01/15 Prazosin 2 Mg Capsule2 Mg PO HS 01/10/15 Pravastatin 40 Mg Hibxsr53 Mg PO HS 01/10/15 Nortriptyline 50 Mg Dwyiceh761 Mg PO HS 01/10/15 Methadone 5 Mg Tablet5 Mg PO BID 01/10/15 Docusate Sodium 250 Mg Wnvphls628 Mg PO DAILY 01/10/15 Discontinued Reported Medications Furosemide 40 Mg Tuagfm50 Mg PO DAILY 05/18/17 oxyCODONE-Acetaminophen 5-325 mg 1 Each Tablet1 Tab PO Q6H PRN For Pain Ref 0 04/21/17 HydrOXYzine HCl 10 Mg Aqsicv80 Mg PO TID PRN For Itching Ref 0 10/20/16 Omeprazole 20 Mg Tablet.dr20 Mg PO BID 06/19/15 Vancomycin 1 Gm VialUnknown Dose IV BID 04/21/17 Zolpidem 10 Mg Tvtdsy19 Mg PO HS PRN For Insomnia Ref 0 10/20/16 Vardenafil (Levitra)20 Mg Awqyui08 Mg PO 10/20/16 Fluticasone Propionate (Flonase Allergy Relief)50 Mcg/Actuation [place].susp9.9 Ml NS 10/20/16 Cetirizine 5 Mg Tablet5 Mg PO HS Ref 0 10/20/16 Bisacodyl (Dulcolax Rectal)10 Mg Supp.rect10 Mg RC DAILY 30 Days Ref 0 10/20/16 Wheat Dextrin (Benefiber)1 Each Powd.pack1 Each PO 10/20/16 Aspirin 81 Mg Sclwaf559 Mg PO DAILY 06/19/15 History History of ENT Problems?: No HEENT History: Positive for:: Hearing Problem Denies:: Abnormal Airway Cataracts Difficult Intubation Dysphagia Sinus Problem TMJ Denture Type: None Teeth Condition: Within Normal Limits Hx of Heart Problems?: Yes Cardiovascular History: Positive for:: Cardiac Surgery (CABG 2014) Hypertension Irregular Heartbeat (atrial fibrilation) Denies:: Abdominal Aortic Aneurism Atrial Fibrillation Chest Pain Congestive Heart Failure Coronary Artery Disease Edema Heart Murmur Pacemaker Thrombophlebitis Hx of Respiratory Problem?: Yes Respiratory History: Positive for:: Chest Surgery (CABG 2014) Use of Inhalers / NEBS Denies:: Asthma COPD Cough Dyspnea Emphysema Hemoptysis Oxygen Administration Pneumonia Pulmonary Embolism Tuberculosis Use of C-PAP Machine Hx Neurologic Problems?: Yes Neurological History: Positive for:: Dizziness (when standing and walking) Headaches Denies:: Alzheimer's Disease CVA Dementia Multiple Sclerosis Parkinson's Disease Seizures TIA Hx of GI Problems?: Yes Hx of Problems?: Yes Genitourinary History: Positive for:: HX of Hemodialysis (Tues, thurs, sat. will dialyze am of surgery) Denies:: Kidney Stones Urinary Tract Infection HX of Peritoneal Dialysis: No Male Hx: Denies:: Prostate Problems Scrotal Mass Testicular Surgery Skin History: Positive for:: Pressure Ulcers (Rt hip area) Denies:: History Skin Disorders? Hx Musculoskeletal Problems?: Yes Musculoskeletal History: Positive for:: Back Injury (lower back "is a mess") Osteoarthritis Denies:: Degenerative Joint Fibromyalgia Joint Replacement Musculoskeletal Trauma Myasthenia Gravis Rheumatoid Arthritis Hx of Psycho/Social Problems?: Yes Psycho Social History: Positive for:: Anxiety Hx Depression Denies:: Bipolar Disorder Suicide Attempt Hx Surgeries?: Yes (CABG, fistula, "cleaned up fistula multiple times") Hx Any Other Health Problems?: Yes Other History: Positive for:: Hospitalization (04/25/2017) Denies:: Cancer Thyroid Disease History Blood Transfusions: Positive for:: Accept Blood Products? Denies:: Blood Transfuse Reaction Blood Transfusions Hx Diabetes: YesBedside Blood Glucose: 114 Hx Alcohol Use: NoHx Substance Use: No Smoking Status: Former Smoker Have You Smoked inLast 12 mo: No Stop/Bang Treated for Sleep Apnea?: No Do You Have a CPAP Machine?: No S-Snoring: Do You Snore Loudly: No T-Tired: feel tired, fatigued: No O-Obsered: Observed not breath: No P-Blood Pressure: treated: Yes B- Body Mass Index > 35 kg/m2: No A- Age over 50: Yes N- Neck Large Circumference: No G- Gender Male: No INOCENTE Risk Assessment: Low Risk, <3 Yes Risk Assessment Category Category 1A: Patient has history of documented sleep apnea, and HAS NOT received any narcotic, sedative or anesthesia administration during this stay. Category 1B: Patient has history of documented sleep apnea, and HAS received any narcotic , sedative or anesthesia administration during this stay Category 2: Patient has SUSPECTED Obstructive Sleep Apnea, and HAS received any narcotic , sedative or anesthesia administration during this stay. Category 3: Patient has SUSPECTED Obstructive Sleep Apnea and HAS NOT received narcotic, sedative or anesthesia administration during this stay. Category 4: Outpatient in Procedural Areas with known sleep apnea or who screen positive for High Risk via the STOP/BANG questionnaire. Exam Exam Vital Signs Vital Signs Date Time Temp Pulse Resp B/P Pulse Ox O2 Delivery O2 Flow Rate FiO2 05/24/17 12:23 36.4 72 16 157/73 95 Room Air General Appearance: Alert, Oriented X3, Cooperative, No Acute Distress HEENT/AIRWAY: MP 3 Lungs: Clear to Auscultation, Normal Air Movement Heart: Exam Unremarkable, Regular Rate/Rhythm, No Murmurs/Rubs/Gallops Meds/Labs/Diagnostics Admission Meds Current Medications Sodium Chloride (Normal Saline) 500 ml @ 10 mls/hr Q24H IV Last administered on 05/24/17 11:49; Start 05/24/17 at 05:00; Stop 05/26/17 at 06:59 Dextrose/Water (D50 Syringe) 50 ml STK-MED ONCE .ROUTE Last administered on 12:18; Start 05/24/17 at 12:13; Stop 05/24/17 at 12:14; Status DC Bedside Blood Glucose: 114 Labs Test 05/24/17 12:08 Potassium Level 5.9mEq/L (3.5-5.2) Plan Impression Patient chart reviewed, patient interviewed and anesthestic plan with risks, benefits, and alternatives discussed, and informed consent obtained. NPO per Anesth. Guidelines: Yes ASA Physical Status: ASA3 Severe Disease Anesthetic Plan: MAC Bene/Risks/Altern/Consents: Yes HP Complete Prior to Induction: Yes Corey Palma MD May 24, 2017 13:35
[2017-05-24] MEDS ORDERED: Lidocaine 1% 50 mL Inj INFILTRATE ONE (14:02)
[2017-05-24] MEDS ORDERED: Bupivacaine-MPF 0.25% 30 mL Inj INFILTRATE ONE (14:03)
[2017-05-24 14:25] VITALS: BP 80/23; PULSE 72; RESP 17; O2SAT 99
[2017-05-24 14:30] VITALS: BP 112/57; PULSE 79; RESP 18; O2SAT 99
[2017-05-24] MEDS ORDERED: HYDROcodone-APAP 5-325 mg Tablet PO PRN (14:30)
[2017-05-24 14:35] VITALS: BP 118/66; PULSE 75; RESP 14; O2SAT 97
--- NOTE | 2017-05-24 14:44 | PCM.ANEP1 ---
Post Anesthesia PACU Phase 1 Assessment Vital Signs Vital Signs Date Time Temp Pulse Resp B/P Pulse Ox O2 Delivery O2 Flow Rate FiO2 05/24/17 14:35 75 14 118/66 97 Non-Rebreather 10 05/24/17 14:30 79 18 112/57 99 Non-Rebreather 10 05/24/17 14:25 36.6 72 17 80/23 99 Non-Rebreather 10 05/24/17 12:23 36.4 72 16 157/73 95 Room Air Anesthetic Administered: MAC Level of Alertness: Sleepy, easy to arouse Pain: No Nausea or Vomiting: No CV Function & Hydration Stable: Yes Airway Device: Oxygen Delivery: Room Air Lungs: Clear to Auscultation, Normal Air Movement PACU Phase 2 Assessment Complications: No Follow up Care: No Patient Instructions Provided: N/A Corey Palma MD May 24, 2017 14:44
[2017-05-24 14:49] VITALS: BP 119/89; PULSE 69; RESP 15; O2SAT 98
--- NOTE | 2017-05-25 12:59 | OP ---
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 PROCEDURE: Left index finger revision amputation and distal interphalangeal (DIP) disarticulation. SURGEON: Fabián Asencio MD. ECOLOGY PROFESSOR: None. ANESTHESIA: MAC with local. COMPLICATIONS: None apparent. SPECIMEN: Left index finger amputation to Pathology. 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 The patient had the AV fistula ligated. The patient's wounds are slowly healing in. However, patient does have left index finger necrosis with dry gangrene. At this point, revision amputation is indicated. PROCEDURE AND FINDINGS: The patient was identified in the preoperative area. Surgical site was marked. The patient was then taken back to the operating room and placed supine on the operating table. Appropriate time-outs were taken. MAC was induced smoothly. The patient was then prepped and draped in the usual sterile manner. Local anesthesia was then infiltrated to the left index finger surrounding surgical site consisting of 1% lidocaine with epinephrine and 4% Marcaine. It was noted that patient has dry gangrene involving mostly the dorsal aspect of the left index finger distal phalanx. It starts just distal to the DIP crease and extends to the tip. The proximal 2/3 of the volar pad appears to be viable. Incision was made at the junction of the gangrene with the viable tissue. This was done with a 15 blade. Dorsally it was incised down to the underlying distal phalanx. Volarly and on the radial and ulnar aspect of the finger again, incision was made down to the underlying bone. At this point, the distal phalanx was transected at the proximal most aspect of the incision with a bone cutter. This was passed off to Pathology as a specimen. It was noted that the cut margin of the wound bled profusely. The bone continues to be slightly soft. I used the rongeur and remove some more bone and was down to the DIP joint. Once this has been done, I used the rongeur to further remove the residual collagenous and joint stressors and joint structure from the middle phalangeal head. The flange of the middle phalangeal head was also trimmed back with a bone cutter. The bone of the middle phalangeal head appears to be quite firm and does not appear to be osteomyelitic. Once this has been done, the area was then rinsed with copious amounts of saline solution. Then naturally created volar flap was then folded dorsally. I started suturing from the ulnar aspect with 4-0 nylon vertical mattress sutures. The flap was then trimmed as I proceeded the radially. Once I had closed the majority of the incision, I lengthened the radial aspect of the incision slightly longer. Excess tissue and in this area was marked and removed with a 15 blade. The incision was then completely closed with 4-0 nylon vertical mattress sutures. The patient tolerated the procedure well. Needle count, sponge count, instrument counts were correct at the end of the procedure. The patient was transported to recovery in stable condition.
--- NOTE | 2017-05-29 17:09 | PATH ---
SURGICAL PATHOLOGY Attending Physician:Fabián Asencio CASE STATUS: Signed Out PATIENT NAME: JASS CROWELL PID: [id number] : 1950 DATE COLLECTED:05/24/2017 23:38 SPECIMEN: Finger, Amputation, Non-Traumatic CLINICAL HISTORY: LEFT INDEX FINGER NECROSIS 1). LEFT INDEX FINGER GANGRENE FINAL DIAGNOSIS: Designated as Left Index Finger Gangrene, amputation: - Skin and soft tissue resection margin: Skin and subcutaneous tissue with extensive necrosis and neutrophilic inflammation. - Bone resection margin: Devitalized and reactive bone with marrow fibrosis and neutrophilic inflammation. - Ulcer with underlying bone with necrosis and neutrophilic inflammation. - No evidence of malignancy. ICD10: I96 GROSS DESCRIPTION: The specimen is received in formalin, labeled with the patient's name, sublabeled as left index finger gangrene, and consists of a resected fingertip (1.1 cm AP, 2.1 cm SI, 1.7 cm ML). The fingernail cannot be identified. The specimen is black-brown and desiccated with an apparent hard crusted over pale sprague ulcer (0.7 x 0.4 cm) on the inferolateral aspect. The underlying bone is hard and cannot be slice with a scalpel. The bone cut surface is dark brown. Ink code: black-bone resection margin; orange-anterior; green-posterior. Section code: (A) skin and soft tissue resection margins; (B) bone resection margin, enface; (C) ulcer, perpendicularly sectioned, senior patient account representative; (D) bone underlying ulcer, serially sectioned, senior patient account representative. Note: The bone sections have been decalcified. 05/25/17 ICD-9 CODES: CPT CODES: 1: 88991, 54629 Electronically Signed Out Jose Juan Olivera MD [facility] [address], [place] [address] Technical component performed at [facility], [facility] [address], [place], [address]
== END 2017-05-24 23:59 | disposition home or self-care (01) ==
LOC: SAS 11:34
PROVIDERS: ATTEND Plastic Surgery
DX: I96 Gangrene, not elsewhere classified (principal); T82.898A Other specified complication of vascular prosthetic devices, implants and grafts, initial encounter; S61.203A Unspecified open wound of left middle finger without damage to nail, initial encounter; S61.205A Unspecified open wound of left ring finger without damage to nail, initial encounter; I25.10 Atherosclerotic heart disease of native coronary artery without angina pectoris; E11.22 Type 2 diabetes mellitus with diabetic chronic kidney disease; E78.5 Hyperlipidemia, unspecified; I48.0 Paroxysmal atrial fibrillation; N18.6 End stage renal disease; I25.2 Old myocardial infarction; F41.8 Other specified anxiety disorders; M54.9 Dorsalgia, unspecified; G47.33 Obstructive sleep apnea (adult) (pediatric); Z95.1 Presence of aortocoronary bypass graft; Z99.2 Dependence on renal dialysis; Z79.4 Long term (current) use of insulin; Z87.891 Personal history of nicotine dependence
CPT/HCPCS: 26951; 36415; 84132; J2704; J3490; J7040